=== PATIENT | male | born 1970 | race Caucasian/White ===

== ENCOUNTER 2016-11-15 21:27 | Emergency (ER) | payer SELFPAY ==
[~2016-11-15] VITALS: Ht 170.1 cm; Wt 113.4 kg
[~2016-11-15 21:27] MED LIST: ANAPROX DS550 MG PO; AUGMENTIN 875 M1 TAB PO; BP PILL; CHOLESTEROL; CORTISPORIN 1%-10 M1 OT; CORTISPORIN SUS10 ML OT; CYCLOBENZAPRINE10 MG PO; HYDROCODONE BIT1 T11 PO; KEFLEX500 MG PO; MOTRIN800 MG PO; Motrin,Rufen800 MG PO; NAPROSYN500 MG PO; NEURONTIN300 MG PO; VICODIN 5-3001 EACH PO; VICODIN 5/500 505 MG PO; VISTARIL50 MG PO
[2016-11-15] MEDS ORDERED: CYCLOBENZAPRINE10 MG PO (22:22)
[2016-11-15] MEDS ORDERED: MEDROL DOSEPAK4 MG PO (22:22)
== END 2016-11-15 22:19 | disposition home or self-care (01) ==
LOC: ED 21:27
DX: G89.29 Other chronic pain (principal); M54.40 Lumbago with sciatica, unspecified side

== ENCOUNTER 2017-06-04 21:56 | Emergency (ER) | payer SELFPAY ==
[~2017-06-04] VITALS: Ht 170.1 cm; Wt 113.4 kg
[~2017-06-04 21:56] MED LIST changes: +MEDROL DOSEPAK4 MG PO
== END 2017-06-04 23:32 | disposition home or self-care (01) ==
LOC: ED 21:56
DX: S50.01XA Contusion of right elbow, initial encounter (principal); X58.XXXA Exposure to other specified factors, initial encounter; Y93.89 Activity, other specified; Y92.89 Other specified places as the place of occurrence of the external cause; Y99.8 Other external cause status; R03.0 Elevated blood-pressure reading, without diagnosis of hypertension

== ENCOUNTER 2017-06-08 20:47 | Emergency (ER) | payer SELFPAY ==
[~2017-06-08] VITALS: Ht 172.7 cm; Wt 99.8 kg
[2017-06-08] MEDS ORDERED: CLARITIN-D 24 H1 TAB PO (21:01)
[2017-06-08] MEDS ORDERED: Zofran4 MG SL (21:01)
[2017-06-08] MEDS ORDERED: FLONASE ALLERG9.9 ML NAS (21:01)
== END 2017-06-08 21:06 | disposition home or self-care (01) ==
LOC: ED 20:47
DX: J06.9 Acute upper respiratory infection, unspecified (principal); G89.29 Other chronic pain; F10.10 Alcohol abuse, uncomplicated

== ENCOUNTER 2017-06-12 20:17 | Emergency (ER) | payer MEDICAID ==
[~2017-06-12] VITALS: Ht 170.1 cm; Wt 113.4 kg
[~2017-06-12 20:17] MED LIST changes: +CLARITIN-D 24 H1 TAB PO; +FLONASE ALLERG9.9 ML NAS; +Zofran4 MG SL
[2017-06-12] MEDS ORDERED: NAPROSYN500 MG PO (21:26)
== END 2017-06-12 21:30 | disposition home or self-care (01) ==
LOC: ED 20:17
DX: M25.571 Pain in right ankle and joints of right foot (principal); F10.10 Alcohol abuse, uncomplicated

== ENCOUNTER 2018-06-06 15:35 | Emergency (ER) | payer OTHER ==
[~2018-06-06] VITALS: Ht 170.1 cm; Wt 99.8 kg
[2018-06-06] MEDS ORDERED: CYCLOBENZAPRINE5 M3 PO (18:34)
[2018-06-06] MEDS ORDERED: MEDROL DOSEPAK4 MG PO (18:34)
== END 2018-06-06 18:16 | disposition home or self-care (01) ==
LOC: ED 15:35
DX: S46.911A Strain of unspecified muscle, fascia and tendon at shoulder and upper arm level, right arm, initial encounter (principal); G89.29 Other chronic pain; Z79.899 Other long term (current) drug therapy; Z79.2 Long term (current) use of antibiotics; Z90.49 Acquired absence of other specified parts of digestive tract; X58.XXXA Exposure to other specified factors, initial encounter; Y93.89 Activity, other specified; Y92.89 Other specified places as the place of occurrence of the external cause; Y99.8 Other external cause status

== ENCOUNTER 2018-08-20 23:06 | Emergency (ER) | payer OTHER ==
[~2018-08-20] VITALS: Ht 170.1 cm; Wt 107.0 kg
[~2018-08-20 23:06] MED LIST changes: +CYCLOBENZAPRINE5 M3 PO
[2018-08-20] MEDS ORDERED: AVPAK AZITHROM250 M1 PO (23:13)
== END 2018-08-21 00:57 | disposition home or self-care (01) ==
LOC: ED 23:06
DX: S63.92XA Sprain of unspecified part of left wrist and hand, initial encounter (principal); M18.9 Osteoarthritis of first carpometacarpal joint, unspecified; M19.042 Primary osteoarthritis, left hand; M19.032 Primary osteoarthritis, left wrist; Z79.2 Long term (current) use of antibiotics; W20.8XXA Other cause of strike by thrown, projected or falling object, initial encounter; Y93.89 Activity, other specified; Y92.89 Other specified places as the place of occurrence of the external cause; Y99.8 Other external cause status

== ENCOUNTER 2019-06-14 13:08 | Emergency (ER) | payer OTHER ==
[~2019-06-14] VITALS: Ht 170.1 cm; Wt 108.9 kg
[~2019-06-14 13:08] MED LIST changes: +AVPAK AZITHROM250 M1 PO
[2019-06-14] MEDS ORDERED: IBU800 MG PO (14:54)
== END 2019-06-14 14:58 | disposition home or self-care (01) ==
LOC: ED 13:08
DX: S86.012A Strain of left Achilles tendon, initial encounter (principal); G89.29 Other chronic pain; Z79.2 Long term (current) use of antibiotics; Z90.49 Acquired absence of other specified parts of digestive tract; X50.1XXA Overexertion from prolonged static or awkward postures, initial encounter; Y93.01 Activity, walking, marching and hiking; Y92.89 Other specified places as the place of occurrence of the external cause; Y99.8 Other external cause status

== ENCOUNTER 2020-02-01 22:59 | Emergency (ER) | payer MEDICAID ==
[~2020-02-01 22:59] MED LIST changes: +IBU800 MG PO
== END 2020-02-01 23:53 | disposition home or self-care (01) ==
LOC: ED 22:59
DX: J34.89 Other specified disorders of nose and nasal sinuses (principal)

== ENCOUNTER 2020-10-16 14:00 | Emergency (ER) | payer MEDICAID ==
[~2020-10-16] VITALS: Ht 162.5 cm; Wt 105.2 kg
[2020-10-16] MEDS ORDERED: ACYCLOVIR400 MG PO (14:50)
[2020-10-16] MEDS ORDERED: NYSTATIN CREAM15 GM T (14:50)
[2020-10-16] MEDS ORDERED: NAPROSYN500 MG PO (14:50)
== END 2020-10-16 14:54 | disposition home or self-care (01) ==
LOC: ED 14:00
DX: M54.5 Low back pain (principal); G89.29 Other chronic pain; Z98.890 Other specified postprocedural states

== ENCOUNTER 2021-04-10 23:15 | Emergency (ER) | payer MEDICAID ==
[~2021-04-10] VITALS: Ht 162.5 cm; Wt 104.3 kg
[~2021-04-10 23:15] MED LIST changes: +ACYCLOVIR400 MG PO; +NYSTATIN CREAM15 GM T
== END 2021-04-11 02:19 | disposition home or self-care (01) ==
LOC: ED 23:15
DX: M79.644 Pain in right finger(s) (principal); M79.89 Other specified soft tissue disorders